=== PATIENT | female | born 1970 | race Two or more races ===

== ENCOUNTER 2019-01-23 12:00 | Inpatient (IN) | payer OTHER ==
[~2019-01-23] VITALS: Ht 154.9 cm; Wt 64.9 kg
[2019-01-24] MEDS ORDERED: CLONAZEPAM0.5 M1 PO (07:23)
[2019-01-24] MEDS ORDERED: ABILIFY5 MG PO (07:23)
[2019-01-24] MEDS ORDERED: ZOLOFT50 MG PO (07:23)
[2019-01-24] MEDS ORDERED: METFORMIN PO (07:25)
[2019-01-24] MEDS ORDERED: ECOTRIN81 MG PO (07:25)
[2019-01-24] MEDS ORDERED: [UNRECOGNIZED DRUG - OTHER] PO (07:26)
[2019-01-24] MEDS ORDERED: OMEPRAZOLE PO (07:27)
[2019-01-24] MEDS ORDERED: ATORVASTATIN PO (07:28)
[2019-01-24] MEDS ORDERED: FENOFIBRATE160 MG PO (07:28)
[2019-01-24] MEDS ORDERED: TOPAMAX50 MG PO ×2 (07:29→07:30)
[2019-01-24] MEDS ORDERED: BREO ELLIPTA 21 EACH IH (07:30)
[2019-01-24] MEDS ORDERED: LYRICA100 MG PO ×2 (07:31→08:16)
[2019-01-24] MEDS ORDERED: CLONAZEPAM1 MG PO ×2 (07:31→08:15)
[2019-01-24] MEDS ORDERED: [UNRECOGNIZED DRUG - OTHER] PO (08:16)
[2019-01-24] MEDS ORDERED: [UNRECOGNIZED DRUG - OTHER] PO (08:17)
[2019-01-24] MEDS ORDERED: PROAIR HFA8.5 GM IH (08:18)
[2019-01-24] MEDS ORDERED: FAMOTIDINE40 MG PO (08:18)
[2019-01-24] MEDS ORDERED: FLONASE16 GM (08:18)
[2019-01-24] MEDS ORDERED: NITROGLYCERIN SL (08:19)
== END 2019-02-01 10:28 | disposition home or self-care (01) | DRG 331 ==
LOC: O/R 01-29 06:05 → SURH 01-29 06:05 → RECOVERY 01-29 12:00 → SURH 01-29 14:55
PROVIDERS: ADMIT Colon & Rectal Surgery
PROC: 0KXL0Z6 Transfer Left Abdomen Muscle, Transverse Rectus Abdominis Myocutaneous Flap, Open Approach (ICD-10-PCS; 2019-01-29)
PROC: 0KXK0Z6 Transfer Right Abdomen Muscle, Transverse Rectus Abdominis Myocutaneous Flap, Open Approach (ICD-10-PCS; 2019-01-29)
PROC: 0DJD8ZZ Inspection of Lower Intestinal Tract, Via Natural or Artificial Opening Endoscopic (ICD-10-PCS; 2019-01-29)
PROC: 3E0F7GC Introduction of Other Therapeutic Substance into Respiratory Tract, Via Natural or Artificial Opening (ICD-10-PCS; 2019-01-29)
PROC: 0DTN4ZZ Resection of Sigmoid Colon, Percutaneous Endoscopic Approach (ICD-10-PCS; principal; 2019-01-29 13:45)
PROC: 0WQF4ZZ Repair Abdominal Wall, Percutaneous Endoscopic Approach (ICD-10-PCS; 2019-01-29 13:45)
DX: K43.2 Incisional hernia without obstruction or gangrene (principal); K59.02 Outlet dysfunction constipation; I10 Essential (primary) hypertension; E11.9 Type 2 diabetes mellitus without complications; J44.9 Chronic obstructive pulmonary disease, unspecified; E78.49 Other hyperlipidemia; Z88.0 Allergy status to penicillin